=== PATIENT | female | born 1950 | race African-American/Black ===

== ENCOUNTER → 2020-11-22 08:50 | Outpatient (CLI) | payer MEDICARE, SELFPAY ==
--- NOTE | ~2020-11-22 | MR_ITS ---
EXAMINATION: MR ankle LT wo con DATE: 11/22/2020 09:49 INDICATION: Left ankle pain. TECHNIQUE: Magnetic resonance imaging (MRI) of the left ankle was performed without intravenous contr ast. Sequences included sagittal PD-weighted FS FSE, sagittal PD-weighted FSE, coronal PD-weighted FS FSE, coronal PD-weighted FSE, axial PD-weighted FS FSE, and axial PD-weighted FSE. COMPARISON: None. FINDINGS: Medial ankle ligaments: The superficial and deep components of the deltoid ligament are normal. Lateral ankle ligaments: The anterior and posterior talofibular ligaments, calcaneofibular ligament, and anterior and posterio r tibiofibular ligaments are normal. Tendons: There is mild Achilles tendinopathy. The peroneal tendons and anterior and medial ankle tendons are n ormal. Plantar fascia: Normal. There is an enthesophyte at the calcaneal attachment. Bones/other: Bone alignment is normal. No fracture. The talar dome is normal. There is a skin marker anterolateral to the ankle. Fluid: There is no joint effusion. IMPRESSION: 1. Normal peroneal tendons. Reviewed, dictated and finalized at location A. E ORTHO IMPRESSION: 1. Normal peroneal tendons.
== END ==
PROVIDERS: PCP Internal Medicine
DX: S92.102A Unspecified fracture of left talus, initial encounter for closed fracture (principal); M76.72 Peroneal tendinitis, left leg; M12.572 Traumatic arthropathy, left ankle and foot
CPT/HCPCS: 73721

== ENCOUNTER → 2021-06-14 12:53 | Outpatient (CLI) | payer MEDICARE, SELFPAY ==
--- NOTE | ~2021-06-14 | CT_ITS ---
EXAMINATION: CT abdomen pelvis w con DATE: 06/14/2021 13:38 INDICATION: Left upper quadrant abdominal pain and bloating. TECHNIQUE: Computed tomography (CT) of the abdomen and pelvis was performed with 100 mL Omnipaque-350 intravenous contrast. Automated exposure control and iterative reconstruction technique were employe d. The dose-length product was 849.23 mGy-cm. COMPARISON: None FINDINGS: Mild elevation of the left hemidiaphragm. Lung bases are clear. Heart size is normal. No pericardial or pleural effusion. Small sliding-type hiatal hernia. Multiple well-defined fluid attenuation hepati c cysts, the largest measuring up to 2.8 cm . Gallbladder, spleen, pancreas bilateral adrenal glands and kidneys are normal. Bowels are unremarkable with no obstruction. Bladder, uterus and bilateral ad nexa are unremarkable. No free intraperitoneal gas or fluid. No pathologically enlarged abdominal or pelvic lymphadenopathy. L2-S1 posterior spinal fusion with solid osseous fusion at the posterior pilot station ents and bilateral vertical rods with pedicle screws at L2, L3 and S1. Anterior spinal fusion with ingrid ne graft cages at L2-L3, L3-L4 and L5-S1. Intrathecal pain pump in the subcutaneous tissues at the an terior right lower quadrant with catheter extending into the central canal at the level of T12-L1 whi ch extends cephalad with distal tip in the left side of the central canal at the level of T9. IMPRESSION: 1. No acute intra-abdominal/pelvic process. 2. Small sliding-type hiatal hernia. Reviewed, dictated and finalized at location B.
[2021-06-14 13:25] LABS: Estimated Glomerular Filt Rate 45
== END ==
PROVIDERS: PCP Internal Medicine; Visit Provider Internal Medicine Gastroenterology
DX: R19.07 Generalized intra-abdominal and pelvic swelling, mass and lump (principal); R10.12 Left upper quadrant pain; K44.9 Diaphragmatic hernia without obstruction or gangrene
CPT/HCPCS: 74177; Q9967

== ENCOUNTER → 2022-04-29 10:45 | Outpatient (CLI) | payer MEDICARE, SELFPAY ==
--- NOTE | ~2022-04-29 | MR_ITS ---
EXAMINATION: MR cervical spine wo con DATE: 04/29/2022 11:18 INDICATION: Neck pain. TECHNIQUE: Magnetic resonance imaging (MRI) of the cervical spine was performed without intravenous c ontrast. Sequences included sagittal T2-weighted FSE, sagittal T2-weighted FS FSE, sagittal T1-weight ed FSE, axial MERGE, and axial T2-weighted FSE. COMPARISON: None FINDINGS: There is 3 degrees levocurvature of cervical spine. There is 2 mm retrolisthesis of C3 on C 4 and C4 on C5. There are changes of anterior fusion procedure from C5 to C7 with healed interbody ingrid ne graft and anterior plate and screws. There is severely decreased disc height at C2-C3, C3-C4, and C4-C5. The spinal cord signal intensity is normal. The following disc levels are specifically discuss ed: C2-C3: The disc is bulging. There is severe bilateral uncovertebral joint osteoarthritis. There is se skye bilateral facet joint osteoarthritis. There is mild right neural foraminal stenosis. There is mi ld central canal stenosis. C3-C4: The disc is bulging. There is severe bilateral uncovertebral joint osteoarthritis. There is se skye bilateral facet joint osteoarthritis. There is mild bilateral neural foraminal stenosis. There i s mild central canal stenosis with ventral indentation of the spinal cord. C4-C5: The disc is bulging. There is severe bilateral uncovertebral joint osteoarthritis. There is se skye bilateral facet joint osteoarthritis. There is moderate right and mild left neural foraminal damaris nosis. There is mild central canal stenosis. C5-C6: There is no uncovertebral joint hypertrophy. There is no facet joint hypertrophy. There is no neural foraminal stenosis. There is no central canal stenosis. C6-C7: There is no uncovertebral joint hypertrophy. There is no facet joint hypertrophy. There is no neural foraminal stenosis. There is no central canal stenosis. C7-T1: There is a central protrusion. There is mild bilateral uncovertebral joint osteoarthritis. The re is moderate bilateral facet joint osteoarthritis. There is mild bilateral neural foraminal stenosi s. There is no central canal stenosis. IMPRESSION: 1. Severe cervical spondylosis. 2. Anterior fusion procedure from C5 to C7. Reviewed, dictated and finalized at location A.
== END ==
PROVIDERS: Visit Provider Neurological Surgery
DX: M54.2 Cervicalgia (principal); M47.812 Spondylosis without myelopathy or radiculopathy, cervical region; Z98.1 Arthrodesis status
CPT/HCPCS: 72141

== ENCOUNTER → 2022-08-12 15:43 | Outpatient (CLI) | payer MEDICARE, SELFPAY ==
--- NOTE | ~2022-08-12 | CT_ITS ---
EXAMINATION: CT lumbar spine wo con DATE: 08/12/2022 16:03 INDICATION: Low back pain. TECHNIQUE: Computed tomography (CT) of the lumbar spine was performed without intravenous contrast. A utomated exposure control and iterative reconstruction technique were employed. The dose-length produ ct was 823.23 mGy-cm. COMPARISON: Lumbar spine MRI 02/01/2019 FINDINGS: There is 6 degrees levocurvature of thoracolumbar spine. There are changes of anterior fusi on procedures at L2-L3, L3-L4, and L5-S1 with interbody devices. There is 3 mm anterolisthesis of L4 on L5. There are changes of posterior fusion procedure from L2 to S1 with pedicle screws in L2, L3, a nd S1. There is moderately decreased disc height at T11-T12 and mildly decreased disc height at T12-L 1. Partially visualized is an intrathecal catheter. The following disc levels are specifically discus sed: T11-T12: The disc is bulging. There is mild bilateral facet joint osteoarthritis. There is moderate r ight and mild left neural foraminal stenosis. There is mild central canal stenosis. T12-L1: The disc is bulging. There is mild bilateral facet joint osteoarthritis. There is moderate bi lateral neural foraminal stenosis. There is mild central canal stenosis. L1-L2: The disc does not extend beyond the endplate margin. There is mild bilateral facet joint osteo arthritis. There is no neural foraminal stenosis. There is no central canal stenosis. L2-L3: There is mild right facet joint hypertrophy. There is mild right neural foraminal stenosis. Th ere is no central canal stenosis. L3-L4: There is mild bilateral facet joint hypertrophy. There is mild bilateral neural foraminal sten osis. There is no central canal stenosis. L4-L5: The disc does not extend beyond the endplate margin. There is no facet joint hypertrophy. Ther e is mild bilateral neural foraminal stenosis. There is no central canal stenosis. L5-S1: There is no facet joint osteoarthritis. There is no neural foraminal stenosis. There is no nagi tral canal stenosis. IMPRESSION: 1. Moderate lower thoracic spondylosis and mild lumbar spondylosis. 2. Anterior fusion procedures at L2-L3, L3-L4, and L5-S1. 3. Posterior fusion procedure from L2 to S1. Reviewed, dictated and finalized at location A.
== END ==
PROVIDERS: Visit Provider Neurological Surgery
DX: M54.50 Low back pain, unspecified (principal); M43.04 Spondylolysis, thoracic region; M43.06 Spondylolysis, lumbar region; Z98.1 Arthrodesis status
CPT/HCPCS: 72131

== ENCOUNTER → 2022-08-26 14:38 | Outpatient (CLI) | payer MEDICARE, SELFPAY ==
--- NOTE | ~2022-08-26 | XR_ITS ---
EXAMINATION: XR lumbar spine 2-3V DATE: 08/26/2022 14:58 INDICATION: Pain pump removal. TECHNIQUE: 3 views of lumbar spine were obtained. COMPARISON: CT lumbar spine 08/12/2022 FINDINGS: There is 3 degrees levocurvature of lumbar spine. There is 3 mm anterolisthesis of L4 on L5 . There are changes of anterior fusion procedures at L2-L3, L3-L4, and L5-S1 with interbody devices. There are changes of posterior fusion procedure from L2 to S1 with pedicle screws at L2, L3, and S1. The disc height is normal at L1-L2. There is an intrathecal catheter with pump overlying right abdome n. IMPRESSION: 1. Anterior and posterior fusion procedures in lumbar spine. Reviewed, dictated and finalized at location A. PRODUCTION
== END ==
PROVIDERS: Visit Provider Neurological Surgery
DX: M54.50 Low back pain, unspecified (principal); Z98.1 Arthrodesis status
CPT/HCPCS: 72100

== ENCOUNTER → 2023-05-12 08:48 | Outpatient (CLI) | payer MEDICARE, SELFPAY ==
--- NOTE | ~2023-05-12 | MR_ITS ---
MRI of the bilateral hips Clinical history: Osteoarthritis Technique: Coronal T1-weighted, T2-weighted, and proton-density fat-sat images, and axial T1-weighted and proton-density fat-sat images were acquired through the pelvis. Coronal T2-weighted images and c oronal, axial, and sagittal proton-density fat-sat images were acquired through the bilateral hips. Findings: There is no fracture, avascular crisis, or transient osteoporosis of either hip. There is m ild to moderate diffuse chondral thinning of the left hip joint, without significant joint effusion. No definite left acetabular labral tear identified. There is moderate to severe diffuse chondromalaci a of the right hip joint. No right hip joint effusion or definite right acetabular labral tear identi fied. There is focal prominence subchondral cystic change or marrow edema at the posterior superior r ight femoral head, likely reactive due to underlying degenerative joint disease. No other bone marrow signal abnormality evident. Visualized musculature about the pelvis and bilateral hips is unremarkable. No muscle atrophy or olman a. Visualized tendons are intact. No soft tissue mass or fluid collection. No evidence for bursitis. IMPRESSION: Osteoarthritis of bilateral hips, moderate in overall severity in the right hip, and mild overall sev erity of the left hip. No fracture or subluxation. No distinct soft tissue abnormality evident. Reviewed, dictated and finalized at location M. IMPRESSION: Osteoarthritis of bilateral hips, moderate in overall severity in the right hip , and mild overall severity of the left hip. No fracture or subluxation. No distinct soft tissue abnormality evident.
== END ==
PROVIDERS: PCP Family Medicine; Visit Provider Family Medicine
DX: M16.0 Bilateral primary osteoarthritis of hip (principal)
CPT/HCPCS: 73721

== ENCOUNTER → 2023-10-03 11:07 | Outpatient (CLI) | payer MEDICARE, SELFPAY ==
--- NOTE | ~2023-10-03 | MR_ITS ---
EXAMINATION: MR shoulder RT wo con DATE: 10/03/2023 12:04 INDICATION: rt shoulder rotator cuff tear. neck pain down to posterior . TECHNIQUE: Magnetic resonance imaging (MRI) of the shoulder was performed without intravenous contras t. Sequences included axial PD-weighted FS FSE, coronal oblique PD-weighted FS FSE and T2-weighted FS FSE, and sagittal oblique T2-weighted FS FSE and T1-weighted FSE. COMPARISON: None. FINDINGS: Coracoacromial arch: Moderate AC joint hypertrophy with moderate inferior osteophytosis. Mild lateral downsloping of the t ype II acromion. Mild acromial tip enthesopathy. Mild subacromial narrowing. No subcoracoid narrowing . Rotator cuff: 4 x 6 mm articular sided tear of the supraspinatus at the 12:00 position. 6 mm rim rent type tear of the distal fibers of the supraspinatus at their insertion. 3 mm partial-thickness tear of the distal infraspinatus fibers at their insertion. Mild thickening and abnormal signal in the distal cuff. Thic kening and abnormal signal in the subscapularis with medial biceps tendon subluxation. Intact teres m inor. Biceps tendon and glenoid labrum: Longitudinal type tear of the distal long head of biceps tendon, considerable thickening and abnormal signal in the distal tendon. Moderate degenerative changes and attenuation of the glenoid labrum. Fluid: Small volume subacromial subdeltoid fluid. Small volume glenohumeral fluid. Bones/cartilage: 13.5 x 22.6 mm osseous lesion in the superior glenoid, T2 hyperintense, T1 hypointense, irregular/lob ulated margin, narrow zone of transition, no cortical breakthrough, scalloping, erosive change, or so ft tissue mass. Prominent thickened trabeculae appear to pass through this region. Possible intraosse ous hemangioma. Intraosseous cyst or other lesion including metastases not excluded. Degenerative subcortical cysts in the anterolateral humeral head. Otherwise benign and homogenous mar row signal. Moderate glenohumeral cartilage thinning. IMPRESSION: Nonaggressive appearing osseous lesion in the glenoid, differential discussed above. Recommend comple te right shoulder and right scapula radiographs for further characterization. Moderate osseous compromise with mild subacromial narrowing and subacromial subdeltoid bursitis. 4 x 6 mm articular sided and 6 mm rim rent tears of the supraspinatus. 3 mm tear of the distal infras pinatus at its insertion. Partial tear of the subscapularis, with mild medial subluxation of the long head of biceps tendon. Longitudinal type tear of the long head of biceps tendon in a background of extensive tendinopathy. Moderate glenohumeral joint and AC joint osteoarthritis. Reviewed, dictated and finalized at location K. IZATION MANAGEMENT UM NURSE IMPRESSION: Nonaggressive appearing osseous lesion in the glenoid, differential discussed a collins. Recommend complete right shoulder and right scapula radiographs for furth er characterization. Moderate osseous compromise with mild subacromial narrowing and subacromial sub deltoid bursitis. 4 x 6 mm articular sided and 6 mm rim rent tears of the supraspinatus. 3 mm tea r of the distal infraspinatus at its insertion. Partial tear of the subscapularis, with mild medial subluxation of the long hea d of biceps tendon. Longitudinal type tear of the long head of biceps tendon in a background of ext ensive tendinopathy. Moderate glenohumeral joint and AC joint osteoarthritis.
== END ==
PROVIDERS: PCP Family Medicine
DX: M75.101 Unspecified rotator cuff tear or rupture of right shoulder, not specified as traumatic (principal); M19.011 Primary osteoarthritis, right shoulder
CPT/HCPCS: 73221

== ENCOUNTER 2023-10-10 11:21 | Outpatient (CLI) | payer OTHER, MEDICARE, SELFPAY ==
--- NOTE | ~2023-10-10 | MR_ITS ---
EXAMINATION: MR knee RT wo con DATE: 10/10/2023 12:24 INDICATION: Right knee pain. TECHNIQUE: Magnetic resonance imaging (MRI) of the right knee was performed without intravenous contr ast. Sequences included axial PD-weighted FS FSE, coronal PD-weighted FSE and PD-weighted FS FSE, sag ittal PD-weighted FSE, and sagittal T2-weighted FS FSE. COMPARISON: None. FINDINGS: Medial compartment: There is a complex tear involving body and posterior horn of medial meniscus. There is partial-thickn ess cartilage loss of tibial condyle and femoral condyle, deep at the central articular surfaces of f emoral condyle and anterior articular surface of tibial condyle. There are large marginal osteophytes . Lateral compartment: There is maceration of the lateral meniscus. There is an old depression fracture of lateral tibial pl ateau. There is full-thickness cartilage loss of tibial condyle and femoral condyle with moderate sub chondral edema-like marrow signal intensity and large osteophytes. Patellofemoral compartment: There is full-thickness cartilage loss of patellar median ridge and lateral facet with mild subchondr al edema-like marrow signal intensity. There is full-thickness cartilage loss of central and lateral trochlea with mild subchondral edema-like marrow signal intensity. Marginal osteophytes are noted. Ligaments and tendons: The anterior and posterior cruciate ligaments are normal. There are changes of prior sprains of media l collateral ligament and fibular collateral ligament characterized by increased signal intensity pro ximally. There is mild patellar tendinopathy. Fluid: There is a moderate-sized knee joint effusion. There is mild prepatellar and superficial infrapatella r bursitis. IMPRESSION: 1. Severe chondrosis of lateral and patellofemoral compartments and moderate chondrosis of medial com partment. 2. Tears of medial and lateral menisci. 3. Moderate-sized knee joint effusion. Reviewed, dictated and finalized at location E. BILITY BENEFITS SPECIALIST IMPRESSION: 1. Severe chondrosis of lateral and patellofemoral compartments and moderate ch ondrosis of medial compartment. 2. Tears of medial and lateral menisci. 3. Moderate-sized knee joint effusion.
== END 2023-10-10 11:22 ==
PROVIDERS: PCP Family Medicine; Visit Provider Family Medicine
DX: M25.561 Pain in right knee (principal); M22.2X1 Patellofemoral disorders, right knee; S83.241A Other tear of medial meniscus, current injury, right knee, initial encounter; S83.281A Other tear of lateral meniscus, current injury, right knee, initial encounter; M25.461 Effusion, right knee
CPT/HCPCS: 73721

== ENCOUNTER → 2023-12-21 12:46 | Outpatient (CLI) | payer MEDICARE, SELFPAY ==
--- NOTE | ~2023-12-21 | MR_ITS ---
EXAMINATION: MR shoulder RT wo/w con DATE: 12/21/2023 13:50 INDICATION: Malignant neoplasm of the right shoulder TECHNIQUE: Magnetic resonance imaging (MRI) of the right shoulder was performed without intravenous c ontrast. Sequences included axial PD-weighted FS FSE, axial T1-weighted FS FSE, coronal oblique PD-we ighted FS FSE, coronal oblique T2-weighted FS FSE, sagittal T2-weighted FS FSE, and sagittal T1-weigh heather SE. Additional postcontrast axial, sagittal and coronal T1-weighted FS FSE sequences were obtaine d. COMPARISON: 10/03/2023 FINDINGS: Coracoacromial arch: The acromion undersurface is curved in morphology (type II). The coracoacromial ligament is normal. M oderate acromioclavicular osteoarthritis with inferiorly directed marginal osteophytes at the lateral head of the clavicle which exerts mild mass effect upon the underlying supraspinatus tendon. Rotator cuff: Moderate supraspinatus and infraspinatus tendinopathy. No significant change in a small mild articula r sided tear extending and 4 mm AP along the superior facet footplate of the supraspinatus tendon. Th ere is a second small mild articular sided tear measuring 6 mm AP along the middle facet footplate of the infraspinatus tendon. Mild subscapularis tendinopathy without discrete tear. The teres minor ten don is normal. Normal rotator cuff muscle bulk and signal. Biceps tendon, glenoid labrum and glenohumeral cartilage: Moderate tendinopathy of the intra-articular portion of the long head biceps tendon with superimposed longitudinal split tear which extends into the extra-articular portion of the tendon. Amorphous incr eased signal and enhancement consistent with degenerative tearing of the posterosuperior glenoid labr um. The posterior and inferior glenoid labrum is small suggesting additional chronic labral degenerat ion. Is a small region of deep chondral ulceration at the superior glenoid labrum. Additional deep ch ondral ulceration at the superior to the superomedial aspect of the humeral head. Fluid: Physiologic amount fluid in the glenohumeral joint space with mild synovitis at the axillary recess. No loose osteochondral bodies. Small amount of increased fluid signal in the subacromial/subdeltoid b ursa consistent with mild bursitis. Bones: Bone alignment is normal. No fracture. Again seen is a region of increased fluid signal and enhanceme nt with central decreased T1 signal located slightly cephalad to the center of the glenoid. There is focal thinning of the immediately overlying articular cortex on the oblique coronal images. This is l ocated at the site of the previous noted deep chondral ulceration. There appears be an intact signal intensity trabecular pattern superimposed over the increased fluid signal which would argue against m alignancy. Mild cystic changes are seen at the lesser and greater tuberosities consistent with sequel a of chronic rotator cuff disease. IMPRESSION: 1. No significant change in a region of nonspecific increased fluid signal and enhancement at the gle noid. There appears be an intact trabecula pattern superimposed over the increased fluid signal and e nhancement which would argue against malignancy. There does appear to be a associated small region of cortical thickening along the glenoid articular surface over this immediately underlies the site of deep chondral ulceration and may be degenerative in etiology. Would recommend further evaluation with CT for more definitive assessment of the cortices and trabecular which would be the most helpful in determining the aggressiveness of the lesion and likelihood of malignancy. Correlation with any prior outside cross-sectional imaging would also be helpful. 2. Mild glenohumeral osteoarthritis with moderate to potentially high-grade chondromalacia and diffus e labral degeneration. 3. Mild to moderate rotator cuff tendinopathy with small mild articular sided tear
== END ==
DX: C76.41 Malignant neoplasm of right upper limb (principal); M19.011 Primary osteoarthritis, right shoulder
CPT/HCPCS: 73223; A9577

== ENCOUNTER 2024-09-14 08:49 | Outpatient (CLI) | payer MEDICARE, SELFPAY ==
--- NOTE | ~2024-09-14 | CT_ITS ---
CT sinus wo con Ordering provider: Derik Gonzalez, History: . Acute sinusitis . Comparison: None. Technique: Thin slice Scans CT of the paranasal sinuses was performed with coronal and sagittal refor matted images. No IV contrast. . Automated exposure control and iterative reconstruction technique w ere employed. The dose-length product was 262.31 mGy-cm. Findings: NASAL SEPTUM: Mild left nasal septal deviation. OSTEOMEATAL UNITS: Bilaterally patent. NASAL TURBINATES AND NASOPHARYNX: Normal. PARANASAL SINUSES: Minimal left frontal sinus disease. Otherwise, Well aerated. VISUALIZED MASTOIDS: Normal as visualized. BONES: Normal. SUPERFICIAL SOFT TISSUES/VISUALIZED BRAIN PARENCHYMA: Normal. IMPRESSION: Mild left nasal septal deviation. Left frontal sinus disease. Reviewed, dictated and finalized at location A. E DELEGATE
== END 2024-09-14 08:50 | disposition home or self-care (01) ==
LOC: MICIMG 08:49
PROVIDERS: PCP Family Medicine; Visit Provider Family Medicine
DX: J34.2 Deviated nasal septum (principal); J01.90 Acute sinusitis, unspecified; J32.1 Chronic frontal sinusitis
CPT/HCPCS: 70486

== ENCOUNTER 2025-03-10 11:48 | Outpatient (CLI) | payer MEDICARE, SELFPAY ==
--- NOTE | ~2025-03-10 | CT_ITS ---
CT scan of the Neck Technique: 2.5 mm axial scans were obtained through the neck following intravenous administration of 75 cc of Omnipaque 350 contrast material. Coronal and sagittal reconstructions of the neck were obtai jose rafael. Dose reduction technique was used on this scan by utilizing automated exposure control and itera tive reconstruction technique. The dose-length product (DLP) was 383.38 mGy-cm. Clinical History: Swelling, mass Findings: There is no evidence of any significant cervical lymphadenopathy. Several small, nonenlarged jugulo- digastric and posterior cervical lymph nodes are noted bilaterally. Parapharyngeal spaces appear norm al bilaterally. The parotid and submandibular glands appear normal. The pharyngeal mucosal spaces appear normal. No soft tissue masses are seen in the neck. The thyroid gland appears diffusely enlarged questionable hypodense nodules versus artifactual appear ance due to streak artifact from dense contrast in the left subclavian vessels.. Images of the lung a pices reveal no abnormalities. There is degenerative spondylosis of the cervical spine with anterior fusion from C5 to C7. Impression: No acute abnormality or suspicious soft tissue mass]. Diffusely enlarged thyroid gland with questionable nodules versus artifactual hypodensity from streak artifact. Correlate with thyroid function tests as indicated. Consider thyroid ultrasound as indicat ed. Reviewed, dictated and finalized at location . Impression: No acute abnormality or suspicious soft tissue mass]. Diffusely enlarged thyroid gland with questionable nodules versus artifactual h ypodensity from streak artifact. Correlate with thyroid function tests as indic ated. Consider thyroid ultrasound as indicated.
[2025-03-10 12:08] LABS: Estimated Glomerular Filt Rate 44
== END 2025-03-10 11:49 | disposition home or self-care (01) ==
LOC: MICIMG 11:49
PROVIDERS: PCP Family Medicine; Visit Provider Family Medicine
DX: R22.1 Localized swelling, mass and lump, neck (principal)
CPT/HCPCS: 70491; Q9967